=== PATIENT | male | born 1975 | race Caucasian/White ===

== ENCOUNTER 2016-05-30 09:42 | Outpatient (CLI) | payer OTHER ==
[~2016-05-30] VITALS: Ht 182.9 cm; Wt 96.6 kg
[~2016-05-30 09:42] MED LIST: BUPIVACAINE 0.25% 30 ML (SENSORCAINE) VIAL ONE
[2016-05-30] MEDS ORDERED: TRIAMCINOLONE ACET (KENALOG-40) 40 MG/ML 1 ML VIAL ONE (09:43)
--- OUTSIDE RECORDS SUMMARY | 2016-05-30 09:46 | XMS REPORT | Continuity of Care Document ---
Author Author [facility] Organization [facility] Address Unknown Phone Unavailable Care Team Providers Care Clinical Research Assistant Name Role Phone Cody Travis PCP [phone] Source Comments Some departments are not documenting in the electronic medical record. If you do not see the information that you expected, contact Release of Information in the Health Information Management department at [phone] for further assistance in locating additional records.[facility] Active Allergies and Adverse Reactions Allergen Noted Date Severity Reactions Comments Codeine 11/19/2014 Low UNKNOWN Current Medications Prescription Sig. Disp. Refills Start End Date Status Date oxyCODONE-acetaminophen Take 1 Tab by mouth every 12 Tab 0 11/21/19 Active (PERCOCET; ENDOCET; 4 hours as needed 15 ROXICET) 5-325 mg tablet Active Problems Not on file Social History Tobacco Use Types Packs/Day Years Used Date Never Assessed Last Filed Vital Signs Vital Sign Reading Time Taken Blood Pressure 128/95 11/20/2014 3:00 AM CDT Pulse 100 11/19/2014 9:41 PM CDT Temperature 37.4 C (99.3 F) 11/19/2014 9:41 PM CDT Respiratory Rate - - Height - - Weight 100.2 kg (220 lb 14.4 oz) 11/19/2014 9:41 PM CDT Body Mass Index - - Oxygen Saturation 94% 11/20/2014 3:00 AM CDT Plan of Care Health Maintenance Due Date Last Done Comments Physical (Comprehensive) 02/26/1984 Exam Pertussis Vaccine 02/26/1988 Tetanus Vaccine 1994 Influenza Vaccine 01/16/2015 Results from Last 3 Months Not on file
[2016-05-30 09:59] VITALS: BP 125/81
[2016-05-30 10:42] VITALS: BP 128/85
--- NOTE | 2016-05-30 11:36 | Pain Medicine-Procedure ---
Procedure Pre-Op/Post-Op Diagnosis Diagnosis: Disc disorder with radiculopathy, lumbar Indications for Operation Low back pain Attending Surgeon Norma Procedure Date of Service: May 30, 2016 Procedure: Lumbar Epidural Steroid Injection at the L4-L5 level under Fluoroscopic Guidance Procedure: Patient was identified in the holding area. After risks, benefits, and alternatives were discussed with the patient, informed consent was obtained. Patient was brought to the fluoroscopy suite and placed prone on the procedure room table. A time out was performed. Vital signs were monitored throughout the procedure. The patients low back was prepped and draped in the usual sterile fashion. The patients skin was anesthetized using 2% Lidocaine. A Tuohy needle was inserted and advanced to the L4-L5 epidural space under fluoroscopic guidance using the loss of resistance technique and intermittent projection of fluoroscopy. There was no paresthesia with needle placement. The needle position was confirmed in both the AP and lateral view. After negative aspiration 2ml of contrast was injected under live fluoroscopy which showed good spread of the contrast in the epidural space at the appropriate level, there was no intravascular or subarachnoid spread. Again, after negative aspiration for heme or CSF, 2 ml of 0.25% Bupivicaine, 2ml of preservative free normal saline, and 80mg of Kenalog was injected. The needle was removed and a sterile bandage was placed and the patient was transferred to the recovery area in stable condition. After a brief period of observation, patient was discharged to home with no new neurological deficits and no apparent complications. Complications None SUKHDEEP ELLIS MD May 30, 2016 11:36 am
== END 2016-05-30 10:45 ==
LOC: CARD 09:42
PROVIDERS: ATTEND Pain Medicine Pain Medicine
DX: M51.16 Intervertebral disc disorders with radiculopathy, lumbar region (principal); M47.816 Spondylosis without myelopathy or radiculopathy, lumbar region; Z79.899 Other long term (current) drug therapy
CPT/HCPCS: 62323

== ENCOUNTER 2016-07-04 09:21 | Outpatient (CLI) | payer OTHER ==
[~2016-07-04] VITALS: Ht 182.9 cm; Wt 96.6 kg
--- OUTSIDE RECORDS SUMMARY | 2016-07-04 09:24 | XMS REPORT | Continuity of Care Document ---
Author Author [facility] Organization [facility] Address Unknown Phone Unavailable Care Team Providers Care Cigar Tobacco Processing Supervisor Name Role Phone Cody Travis PCP [phone] Source Comments Some departments are not documenting in the electronic medical record. If you do not see the information that you expected, contact Release of Information in the Health Information Management department at [phone] for further assistance in locating additional records.[facility] Active Allergies and Adverse Reactions Allergen Noted [...]
[2016-07-04] MEDS ORDERED: LIDOCAINE 1% INJ 20 ML (XYLOCAINE) VIAL ONE (09:28)
[2016-07-04] MEDS ORDERED: BUPIVACAINE 0.25% 30 ML (SENSORCAINE) VIAL ONE (09:28)
[2016-07-04] MEDS ORDERED: TRIAMCINOLONE ACET (KENALOG-40) 40 MG/ML 1 ML VIAL ONE (09:28)
[2016-07-04 09:31] VITALS: BP 138/87
[2016-07-04 10:00] VITALS: BP 155/94
--- NOTE | 2016-07-04 14:16 | Pain Medicine-Procedure ---
Procedure Pre-Op/Post-Op Diagnosis Diagnosis: disc disorder with radiculopathy, lumbar Indications for Operation Low back pain Attending Surgeon Norma Procedure Date of Service: Jul 04, 2016 Procedure: Lumbar Epidural Steroid Injection at the L4-L5 level under Fluoroscopic Guidance Procedure: Patient was identified in the holding area. After risks, benefits, and alternatives were discussed with the patient, informed consent was obtained. Patient was brought to the fluoroscopy suite and placed prone on the procedure room table. A time out was performed. Vital signs were monitored throughout the procedure. The patients low back was prepped and draped in the usual sterile fashion. The patients skin was anesthetized using 2% Lidocaine. A Tuohy needle was inserted and advanced to the L4-L5 epidural space under fluoroscopic guidance using the loss of resistance technique and intermittent projection of fluoroscopy. There was no paresthesia with needle placement. The needle position was confirmed in both the AP and lateral view. After negative aspiration 2ml of contrast was injected under live fluoroscopy which showed good spread of the contrast in the epidural space at the appropriate level, there was no intravascular or subarachnoid spread. Again, after negative aspiration for heme or CSF, 2 ml of 0.25% Bupivicaine, 2ml of preservative free normal saline, and 80mg of Kenalog was injected. The needle was removed and a sterile bandage was placed and the patient was transferred to the recovery area in stable condition. After a brief period of observation, patient was discharged to home with no new neurological deficits and no apparent complications. Complications None SUKHDEEP ELLIS MD Jul 04, 2016 2:16 pm
== END 2016-07-04 10:02 | disposition home or self-care (01) ==
LOC: CARD 09:21
PROVIDERS: ATTEND Pain Medicine Pain Medicine
DX: M51.16 Intervertebral disc disorders with radiculopathy, lumbar region (principal); M47.816 Spondylosis without myelopathy or radiculopathy, lumbar region; Z79.899 Other long term (current) drug therapy
CPT/HCPCS: 62323

== ENCOUNTER 2018-08-06 19:35 | Observation (INO) | payer MEDICAID, OTHER | END 2018-08-07 15:33 | disposition home or self-care (01) | LOC: ER FS 19:35 → ICU 08-07 00:30 ==

== ENCOUNTER 2020-08-19 05:58 | Emergency (ER) | payer MEDICAID ==
[~2020-08-19 05:58] MED LIST changes: +ACHD5005 PO; -BUPIVACAINE 0.25% 30 ML (SENSORCAINE) VIAL ONE
[2020-08-19 06:03] VITALS: BP 143/93
[2020-08-19] MEDS ORDERED: ONDANSETRON 4 MG (ZOFRAN) ORAL DISSOLVE TAB PO STA (06:17)
--- NOTE | 2020-08-19 06:22 | ED Abdominal Pain ---
General Chief Complaint: Abdominal/GI Problems Stated Complaint: UPPER ABDOMINAL PAIN Nursing Triage Note: Pt in per POV with Upper abdominal pain since 299, reports vomited X2, also took OTC Ibuprofen Sepsis Screen: No Definite Risk History of Present Illness Date Seen by Provider: Aug 19, 2020 Time Seen by Provider: 06:10 Initial Comments 45-year-old male awoke at 3 AM with upper abdominal pain and nausea. He vomited twice. Presents with continued upper abdominal pain which is sharp in nature and gnawing. He did take some Pepcid without any relief. Denies history of peptic ulcer disease. Denies chest pain, palpitations or shortness of air. He denies cough or recent illness. He denies fever or chills. Did not eat anything unusual last night. Does drink a fair amount of caffeine including coffee, energy drinks and Dr. Flowers. Does not regularly take NSAIDs or aspirin. Allergies and Home Medications Allergies Coded Allergies: No Known Drug Allergies (Unverified , 08/06/18) Home Medications Hydrocodone Bit/Acetaminophen 1 Tab Tab, 1 TAB PO Q6H PRN for PAIN-MODERATE Prescribed by: ELOINA MORAN on 08/07/18 0851 Patient Home Medication List Home Medication List Reviewed: Yes Review of Systems Review of Systems Constitutional: No fever, No malaise, No weakness EENTM: No Symptoms Reported Respiratory: No Symptoms Reported Cardiovascular: Denies Chest Pain, Denies Edema, Denies Irregular Heart Rate, Denies Lightheadedness, Denies Palpitations, Denies Syncope Gastrointestinal: See HPI, Abdominal Pain, Nausea, Vomiting Genitourinary: No Symptoms Reported Musculoskeletal: No back pain, No joint pain Skin: No change in color, No lesions, No lumps Past Szmuuqd-Ukdfxc-Rcuccs Hx Past Med/Social Hx: Reviewed Nursing Past Med/Soc Hx Patient Social History Alcohol Use: Occasionally Uses Smoking Status: Never a Smoker Recent Infectious Disease Expo: No Recent Hopitalizations: No Seasonal Allergies Seasonal Allergies: No Past Medical History Surgeries: Yes Appendectomy, Orthopedic Respiratory: No Cardiac: No Neurological: No Reproductive Disorders: No Genitourinary: No Gastrointestinal: No Musculoskeletal: Yes Back Injury Endocrine: No HEENT: No Cancer: No Psychosocial: No ADD/ADHD Integumentary: No Blood Disorders: No Physical Exam Vital Signs Vital Signs - First Documented 08/19/20 06:03 Temp 36.5 Pulse 60 Resp 16 B/P (MAP) 143/93 (110) Pulse Ox 100 O2 Delivery Room Air Capillary Refill : Less Than 3 Seconds Height/Weight/BMI Height: 6'0.00" Weight: 215lbs. 0.0oz. 97.677724nu; 29.2 BMI Method:Stated General Appearance: WD/WN, no apparent distress Respiratory: chest non-tender, lungs clear, normal breath sounds, no respiratory distress, no accessory muscle use Cardiovascular: regular rate, rhythm, no edema, no gallop, no JVD Gastrointestinal: soft, no organomegaly, no pulsatile mass; No distended, No guarding, No rebound; tenderness (epigastric only); No hernia, No mass Back: normal inspection, no CVA tenderness Skin: normal color, warm/dry Progress/Results/Core Measures Results/Orders Vital Signs/I&O 08/19/20 06:03 Temp 36.5 Pulse 60 Resp 16 B/P (MAP) 143/93 (110) Pulse Ox 100 O2 Delivery Room Air Blood Pressure Mean: 110 Departure Impression Primary Impression: Abdominal pain Qualified Codes: R10.13 - Epigastric pain Disposition: 01 HOME, SELF-CARE Condition: Improved Departure-Patient Inst. Decision time for Depature: 06:21 Referrals: ALYSSA FOWLER MD (PCP/Family) Primary Care Physician Patient Instructions: Peptic Ulcers (DC) Add. Discharge Instructions: You MAY have an ulcer. It can't be confirmed without whats called an upper endoscopy (or scope to look in your stomach). We treat with medication for a few weeks to get it to heal. If you are not improving in a couple weeks you should see Dr Fowler to consider an upper endoscopy. Return to the ER if you are feeling worse. Do not take aspirin, motrin or naprosyn. Only take tylenol for pain. Cut down on unnecessary caffeine drinks All discharge instructions reviewed with patient and/or family. Voiced understanding. Scripts Ondansetron (Ondansetron Odt) 4 Mg Tab.rapdis 4 MG PO TID for Nausea, #12 TAB Prov: DIAMOND GUSMAN DO 08/19/20 Sucralfate (Sucralfate) 1 Gm Tablet 1 GM PO ACHS, #28 TAB 1 Refill Chew tablet to a slurry and then swallow take 30 minutes before meals and at bedtime Prov: ROVENSTINE,DIAMOND L DO 08/19/20 Famotidine (Pepcid) 20 Mg Tablet 20 MG PO BID, #60 TAB Prov: DIAMOND GUSMAN DO 08/19/20 DIAMOND GUSMAN DO Aug 19, 2020 06:22
[2020-08-19] MEDS ORDERED: SUCR1TAB PO (06:24)
[2020-08-19] MEDS ORDERED: FAMO-119 PO (06:24)
[2020-08-19] MEDS ORDERED: ONDA4TAB11 PO (06:24)
[2020-08-19] MEDS ORDERED: ONDANSETRON 4 MG (ZOFRAN) ORAL DISSOLVE TAB ONE (06:27)
[2020-08-19] MEDS ORDERED: FAMOTIDINE 20 MG (PEPCID) TABLET ONE (06:27)
[2020-08-19] MEDS ORDERED: LIDOCAINE 2% VISCOUS 15 ML UDC ONE (06:27)
[2020-08-19] MEDS ORDERED: ANTACID SUSP 30 ML UDC (MYLANTA) ONE (06:27)
[2020-08-19] MEDS ORDERED: FAMOTIDINE 20 MG (PEPCID) TABLET PO ONE (06:30)
[2020-08-19] MEDS ORDERED: LIDOCAINE 2% VISCOUS 15 ML UDC PO ONE (06:30)
[2020-08-19] MEDS ORDERED: ANTACID SUSP 30 ML UDC (MYLANTA) PO ONE (06:30)
== END 2020-08-19 06:46 | disposition home or self-care (01) ==
LOC: EDUNIT# 05:58 → ER FS 06:01
DX: R10.13 Epigastric pain (principal)
CPT/HCPCS: 99283

== ENCOUNTER 2021-02-19 11:06 | Emergency (ER) | payer MEDICAID ==
[~2021-02-19] VITALS: Ht 182.9 cm; Wt 100.0 kg
[~2021-02-19 11:06] MED LIST changes: +FAMO-119 PO; +ONDA4TAB11 PO; +SUCR1TAB PO
[2021-02-19] MEDS ORDERED: KETOROLAC 60 MG/2 ML VIAL IM STA (11:17)
--- NOTE | 2021-02-19 11:21 | ED Lower Extremity ---
General Stated Complaint: RT FOOT CRUSH INJ Source: patient Exam Limitations: no limitations History of Present Illness Date Seen by Provider: Feb 19, 2021 Time Seen by Provider: 11:11 Initial Comments Here with right foot injury after a large iron bracket fell on his foot catching the second, third and fourth toes. States they are numb now and complains of pain of 3 out of 10. States it was much worse earlier. Does note blood on his sock. States he feels the bones crunching. Denies other injury or concern. Last tetanus 4 to 5 years ago. Onset: just prior to arrival (Approximately 30 minutes ago) Severity: moderate Pain/Injury Location: right 2nd toe, right 3rd toe, right 4th toe Method of Injury: direct blow Modifying Factors: Improves With Immobilization; Worse With Movement Allergies and Home Medications Allergies Coded Allergies: No Known Drug Allergies (Unverified , 08/06/18) Patient Home Medication List Home Medication List Reviewed: Yes Famotidine (Pepcid) 20 Mg Tablet, 20 MG PO BID Prescribed by: DIAMOND GUSMAN on 08/19/20623 Hydrocodone Bit/Acetaminophen (Lortab 5 Mg Tablet) 1 Tab Tab, 1 TAB PO Q6H PRN for PAIN-MODERATE Prescribed by: ELOINA MORAN on 08/07/18 0851 Ondansetron (Ondansetron Odt) 4 Mg Tab.rapdis, 4 MG PO TID Prescribed by: DIAMOND GUSMAN on 08/19/20623 Sucralfate (Sucralfate) 1 Gm Tablet, 1 GM PO ACHS Prescribed by: DIAMOND GUSMAN on 08/19/20623 Review of Systems Constitutional: see HPI; No chills, No fever Respiratory: no symptoms reported Cardiovascular: no symptoms reported Musculoskeletal: see HPI, joint pain, joint swelling, muscle pain Skin: change in color, lesions Psychiatric/Neurological: Numbness; Denies Weakness Past Xlwdwxc-Gvzixq-Seeptl Hx Patient Social History Tobacco Use?: No Alcohol Use?: Yes Alcohol type: Beer Alcohol Frequency: Rarely Seasonal Allergies Seasonal Allergies: No Past Medical History Surgeries: Yes Appendectomy, Orthopedic Respiratory: No Cardiac: No Neurological: No Reproductive Disorders: No Genitourinary: No Gastrointestinal: No Musculoskeletal: Yes Back Injury Endocrine: No HEENT: No Cancer: No Psychosocial: No ADD/ADHD Integumentary: No Blood Disorders: No Family Medical History Reviewed Nursing Family Hx No Pertinent Family Hx Physical Exam Vital Signs Vital Signs - First Documented 02/19/21 11:10 Temp 35.8 Pulse 107 Resp 20 B/P (MAP) 136/100 (112) Pulse Ox 98 O2 Delivery Room Air Capillary Refill : Height, Weight, BMI Height: 6'0.00" Weight: 215lbs. 0.0oz. 97.288546pd; 29.2 BMI Method:Stated General Appearance: WD/WN, no apparent distress Cardiovascular: regular rate, rhythm, no murmur Respiratory: lungs clear, normal breath sounds Feet: right foot pain, right foot swelling, right foot other (Right distal second, third and fourth toes with contusion and bleeding noted from base of nail on third toe. Third toe nailbed has pulled out of base. States all 3 toes are numb. Distal circulation intact with cap refill less than 3 seconds to all toes.) Skin: warm/dry, ecchymosis, other (Lesions as above) Progress/Results/Core Measures Results/Orders My Orders Orders - DAX ALDANA MD Ketorolac Injection (Toradol Injection) (02/19/21 11:17) Foot 3 View Right (02/19/21 11:17) Vital Signs/I&O 02/19/21 11:10 Temp 35.8 Pulse 107 Resp 20 B/P (MAP) 136/100 (112) Pulse Ox 98 O2 Delivery Room Air Progress Progress Note : Progress Note Seen and evaluated. Tetanus is up-to-date per the patient. X-ray of right foot for evaluation of toe injury ordered. Toradol 60 mg IM for pain. Wounds cleaned by nursing. Monitor patient. 1215: Wounds cleaned and dressed by me. I did use Vaseline gauze over antibiotic ointment and secured with gauze and and gauze roll. Does have nailbed at the base exposed on the second and third toes. I was able to reset those and secure that with dressing without sutures. Patient preferred the nonsuture approach and it seems reasonable given the injury currently. He was informed that he will lose both toenails likely and maybe the fourth toenail as well. Postop shoe given. Discharged home with return precautions. Patient verbalized understanding of instructions and agreement with plan. Diagnostic Imaging Diagonstic Imaging: Xray Plain Films/CT/US/NM/MRI: other Comments NAME: [facility] REC#: [id number] PT STATUS: REG ER : 1975 PHYSICIAN: DAX ALDANA MD ADMIT DATE: 02/19/21/ER FS Draft Date of Exam:02/19/21 FOOT 3 VIEW RIGHT HISTORY: Crush injury to the right 2nd toe COMPARISON: None TECHNIQUE: 3 views of the right foot FINDINGS: There is a markedly comminuted mildly displaced fracture about the tuft and neck of the right 2nd toe distal phalangeal tuft. There is mild dorsal angulation, an additional small chip fracture is at the distal phalangeal base. There also appears to be a nondisplaced fracture at the 3rd toe distal phalangeal tuft. There is soft tissue swelling about the right 2nd toe with soft tissue laceration. No radiopaque foreign body is seen. There are degenerative changes in the 1st MTP joint. Distal fibular fixation plate is noted. IMPRESSION: 1. Markedly comminuted, mildly displaced extra articular fracture of the right 2nd toe distal phalanx. 2. Nondisplaced fracture of the right 3rd toe distal phalanx. Dictated on workstation # [id number] Dict: 02/19/21 1149 Trans: 02/19/21 1158 CV [id number] Interpreted by: KELVIN BORGES MD Electronically signed by: Reviewed: Reviewed by Me Departure Impression Primary Impression: Fracture of third toe, right, closed Qualified Codes: S92.501A - Displaced unspecified fracture of right lesser toe(s), initial encounter for closed fracture Additional Impression: Fracture of second toe, right, closed Qualified Codes: S92.501A - Displaced unspecified fracture of right lesser toe(s), initial encounter for closed fracture Disposition: 01 HOME, SELF-CARE Condition: Improved Departure-Patient Inst. Decision time for Depature: 12:03 Referrals: ALYSSA FOWLER MD (PCP/Family) Primary Care Physician FANNY HARRIS Patient Instructions: Toe Fracture ED Add. Discharge Instructions: Keep dressings in place for the next 2 days. Return for dressing change on morning. After that you will change the dressing once or twice daily as needed if becomes soiled. It is very important today that you go home and elevate your foot to reduce swelling, bleeding and pain. Take medications as directed. You may follow-up with Mike Harris APRN for following the fracture. Return for worse pain, swelling, bleeding, red streaks up the leg or other concerns as needed. You may take ibuprofen 800 mg every 8 hours as needed for pain. You may also take Tylenol/acetaminophen 1000 mg every 6-8 hours as needed for pain. Scripts Cephalexin (Cephalexin) 500 Mg Tablet 500 MG PO QID, #20 TAB 0 Refills Prov: DAX ALDANA MD 02/19/21 DAX ALDANA MD Feb 19, 2021 11:21
--- NOTE | 2021-02-19 11:58 | Diagnostic Imaging Report ---
HISTORY: Crush injury to the right 2nd toe COMPARISON: None TECHNIQUE: 3 views of the right foot FINDINGS: There is a markedly comminuted mildly displaced fracture about the tuft and neck of the right 2nd toe distal phalangeal tuft. There is mild dorsal angulation, an additional small chip fracture is at the distal phalangeal base. There also appears to be a nondisplaced fracture at the 3rd toe distal phalangeal tuft. There is soft tissue swelling about the right 2nd toe with soft tissue laceration. No radiopaque foreign body is seen. There are degenerative changes in the 1st MTP joint. Distal fibular fixation plate is noted. IMPRESSION: 1. Markedly comminuted, mildly displaced extra articular fracture of the right 2nd toe distal phalanx. 2. Nondisplaced fracture of the right 3rd toe distal phalanx. Dictated by: Dictated on workstation # [id number]
[2021-02-19] MEDS ORDERED: CEPH500T PO (12:03)
[2021-02-19 12:23] VITALS: BP 148/98
== END 2021-02-19 12:23 | disposition home or self-care (01) ==
LOC: EDUNIT# 11:06 → ER FS 11:07
DX: S92.531A Displaced fracture of distal phalanx of right lesser toe(s), initial encounter for closed fracture (principal); S92.534A Nondisplaced fracture of distal phalanx of right lesser toe(s), initial encounter for closed fracture; W20.8XXA Other cause of strike by thrown, projected or falling object, initial encounter
CPT/HCPCS: 73630

== ENCOUNTER 2021-02-21 09:58 | Emergency (ER) | payer MEDICAID ==
[~2021-02-21 09:58] MED LIST changes: +CEPH500T PO
--- NOTE | 2021-02-21 10:29 | ED Suture Removal/Wound Check ---
Suture/Wound Re-check Suture Removal/Wound Recheck : Suture Removal/Wound Recheck: Dry/sterile dressing-appl Progress Pt has some oozing blood from where nail beds are lifted up from base. No incr eased redness or streaking up his foot/leg. No fever or chills. No purulent drainage from toes General Appearance: WD/WN, no apparent distress Neuro/Tendon: normal motor functions, normal tendon functions, sensory deficit (decreased sensation to toes) Skin Exam: warm/dry, ecchymosis (2nd and 3rd toes especially) Physical Exam Vital Signs Vital Signs - First Documented 02/21/21 10:25 Temp 36.8 Pulse 78 Resp 16 B/P (MAP) 156/72 Pulse Ox 99 O2 Delivery Room Air Capillary Refill : General Appearance: WD/WN, no apparent distress Departure Impression Primary Impression: Fracture of second toe, right, closed Qualified Codes: S92.501D - Displaced unspecified fracture of right lesser toe(s), subsequent encounter for fracture with routine healing Additional Impressions: Fracture of third toe, right, closed Qualified Codes: S92.501D - Displaced unspecified fracture of right lesser toe(s), subsequent encounter for fracture with routine healing Crushing injury of right foot, subsequent encounter Disposition: 01 HOME, SELF-CARE Condition: Stable Departure-Patient Inst. Decision time for Depature: 10:27 Referrals: ALYSSA FOWLER MD (PCP/Family) Primary Care Physician Patient Instructions: Toe Fracture ED Add. Discharge Instructions: may wash wounds with soap and water, but do not soak them or scrub them. Continue with dressing changes 2 times a day and as needed if bleeding saturates dressing. Use the walking shoe to help stabilize the toes and limit movement so the fractures can heal. This would be 4-6 weeks usually. Follow up with clinic to monitor healing of fractures and nerve contusion. All discharge instructions reviewed with patient and/or family. Voiced understanding. KATIA LUEVANO MD Feb 21, 2021 10:29
[2021-02-21 10:40] VITALS: BP 156/72
== END 2021-02-21 10:40 | disposition home or self-care (01) ==
LOC: EDUNIT# 09:58 → ER FS 09:59
DX: Z48.01 Encounter for change or removal of surgical wound dressing (principal)

== ENCOUNTER 2022-01-10 16:10 | Emergency (ER) | payer MEDICAID ==
[~2022-01-10] VITALS: Ht 182.9 cm; Wt 99.4 kg
[2022-01-10 16:19] VITALS: BP 130/95
--- NOTE | 2022-01-10 16:23 | ED Upper Extremity ---
General Chief Complaint: Upper Extremity Stated Complaint: L RING FINGER PAIN/NUMBNESS Source: patient Exam Limitations: no limitations History of Present Illness Date Seen by Provider: Jan 10, 2022 Time Seen by Provider: 16:11 Initial Comments 46-year-old ambidextrous male with no pertinent past medical history coming in due to left ring finger pain. A couple days ago he was working in a piece of plywood landed on his left ring finger on the end. Since then he has felt like something is floating in it whether it is a piece of wood or splinter of his bone moving around causing pain. The pain is intermittent when he is moving, better with rest, better with ibuprofen this morning. Otherwise denying any other acute complaints. Tetanus is up-to-date Allergies and Home Medications Allergies Coded Allergies: No Known Drug Allergies (Unverified , 08/06/18) Patient Home Medication List Home Medication List Reviewed: Yes Cephalexin (Cephalexin) 500 Mg Tablet, 500 MG PO QID Prescribed by: DAX ALDANA on 02/19/21 1203 Famotidine (Pepcid) 20 Mg Tablet, 20 MG PO BID Prescribed by: DIAMOND GUSMAN on 08/19/20 0624 Hydrocodone Bit/Acetaminophen (Lortab 5 Mg Tablet) 1 Tab Tab, 1 TAB PO Q6H PRN for PAIN-MODERATE Prescribed by: ELOINA MORAN on 08/07/18 0851 Ondansetron (Ondansetron Odt) 4 Mg Tab.rapdis, 4 MG PO TID Prescribed by: DIAMOND GUSMAN on 08/19/2024 Sucralfate (Sucralfate) 1 Gm Tablet, 1 GM PO ACHS Prescribed by: DIAMOND GUSMAN on 08/19/2024 Review of Systems Constitutional: No fever EENTM: no symptoms reported Respiratory: no symptoms reported Cardiovascular: no symptoms reported Gastrointestinal: no symptoms reported Genitourinary: no symptoms reported Musculoskeletal: see HPI Skin: no symptoms reported Psychiatric/Neurological: No Symptoms Reported All Other Systems Reviewed Negative Unless Noted: Yes Past Fasuuhc-Vhdnvh-Cidvjs Hx Patient Social History Tobacco Use?: No Substance use?: No Alcohol Use?: No Pt feels they are or have been: No Immunizations Up To Date First/Initial COVID19 Vaccinat: n/a Second COVID19 Vaccination Gus: n/a Third COVID19 Vaccination Date: n/a Seasonal Allergies Seasonal Allergies: No Past Medical History Surgeries: Yes Appendectomy, Orthopedic Respiratory: No Cardiac: No Neurological: No Reproductive Disorders: No Genitourinary: No Gastrointestinal: No Musculoskeletal: Yes Back Injury Endocrine: No HEENT: No Cancer: No Psychosocial: No ADD/ADHD Integumentary: No Blood Disorders: No Family Medical History No Pertinent Family Hx Physical Exam Vital Signs Vital Signs - First Documented 01/10/22 16:19 Temp 36.7 Pulse 91 Resp 16 B/P (MAP) 130/95 (107) Pulse Ox 98 Capillary Refill : Height, Weight, BMI Height: 6'0.00" Weight: 215lbs. 0.0oz. 97.439905nl; 29.00 BMI Method:Stated General Appearance: WD/WN, no apparent distress HEENT: PERRL/EOMI, normal ENT inspection, pharynx normal Neck: non-tender, full range of motion, supple, normal inspection Cardiovascular: regular rate, rhythm, no edema, no murmur Respiratory: chest non-tender, lungs clear, normal breath sounds, no respiratory distress, no accessory muscle use Gastrointestinal: normal bowel sounds, non tender, soft; No distended, No guarding, No rebound Back: normal inspection Hand: normal ROM, Left (Left ring finger with little bit of redness and tenderness to palpation on the distal aspect with a small excoriation on the palmar surface) Neurologic/Tendon: normal sensation, normal motor functions, normal tendon functions Neurologic/Psychiatric: no motor/sensory deficits, alert, normal mood/affect Skin: normal color, warm/dry Lymphatic: no adenopathy Progress/Results/Core Measures Results/Orders My Orders Orders - DAGMAR FUNES MD Acetaminophen Tablet (Tylenol Tablet) (01/10/22 16:30) Finger(S) (01/10/22 16:20) Medications Given in ED Current Medications Medications Dose Ordered Sig/Karma Route Start Time Stop Time Status Last Admin Dose Admin Acetaminophen 1,000 mg ONCE ONCE PO 01/10/22 16:30 01/10/22 16:31 DC 01/10/22 16:31 1,000 MG Vital Signs/I&O 01/10/22 16:19 Temp 36.7 Pulse 91 Resp 16 B/P (MAP) 130/95 (107) Pulse Ox 98 Progress Progress Note : Progress Note 46-year-old male with above history coming in due to left ring finger pain after smashing it a couple days ago. ABCs were intact and vitals were stable on presentation. Physical exam with a little bit of redness and an area of with a punctate wound with tenderness. X-ray with probable foreign body that is very small. My suspicion that it is a small splinter. Discussed with the patient that opening of his finger to try to get this be more harmful to him than good. We will start him on antibiotics and pain medicine and have him follow-up as an outpatient Diagnostic Imaging Diagonstic Imaging: Xray (finger) Comments [facility]. [place], [place] NAME: JACKIE ACOSTA [facility] REC#: [id number] PT STATUS: REG ER : 1975 PHYSICIAN: DAGMAR FUNES MD ADMIT DATE: 01/10/22/ER FS Draft Date of Exam:01/10/22 FINGER(S) INDICATION: Left fourth finger puncture wound. FINDINGS: Three views of the left fourth finger show no fracture or dislocation. There is a tiny radiopaque foreign object in the soft tissue pad of the finger measuring less than a millimeter. IMPRESSION: Suspected tiny foreign body in the pad of the fourth finger. No fracture is seen. Dictated on workstation # [id number] Dict: 01/10/22 1649 Trans: 01/10/22 1653 [id number] Interpreted by: DAX HUANG MD Electronically signed by: Departure Impression Primary Impression: Foreign body of finger Disposition: 01 HOME, SELF-CARE Condition: Stable Departure-Patient Inst. Decision time for Depature: 17:02 Referrals: ALYSSA FOWLER MD (PCP/Family) Primary Care Physician Patient Instructions: Foreign Body in Skin (DC) Add. Discharge Instructions: It looks like a small splinter in the skin that is too deep to really go for to try to get out without causing significant harm to your finger. We will start you on antibiotics in case it started to get infected. You will also be on an anti-inflammatory for the next few days. If you have any redness spreading up your hand rapidly, pus coming out, or new fever then I want you to be seen by doctor. If this is causing significant symptoms over the next couple weeks to months, then I recommend following up with a hand surgeon to see if anything could be done. Scripts Ketorolac Tromethamine (Ketorolac Tromethamine) 10 Mg Tablet 10 MG PO Q8H for 4 Days, #12 TAB Prov: DAGMAR FUNES MD 01/10/22 Cephalexin (Cephalexin) 500 Mg Tablet 500 MG PO QID for 7 Days, #28 TAB Prov: DAGMAR FUNES MD 01/10/22 Work/School Note: Work Release Form Date Seen in the Emergency Department: Jan 10, 2022 Return to Work: Jan 11, 2022 Restrictions: No Restrictions DAGMAR FUNES MD Jan 10, 2022 16:23
[2022-01-10] MEDS ORDERED: ACETAMINOPHEN 500 MG TAB (TYLENOL) PO ONE (16:30)
--- NOTE | 2022-01-10 16:53 | Diagnostic Imaging Report ---
INDICATION: Left fourth finger puncture wound. FINDINGS: Three views of the left fourth finger show no fracture or dislocation. There is a tiny radiopaque foreign object in the soft tissue pad of the finger measuring less than a millimeter. IMPRESSION: Suspected tiny foreign body in the pad of the fourth finger. No fracture is seen. Dictated by: Dictated on workstation # [id number]
[2022-01-10] MEDS ORDERED: KETO10TA PO (17:03)
[2022-01-10] MEDS ORDERED: CEPH500T PO (17:03)
== END 2022-01-10 17:01 | disposition home or self-care (01) ==
LOC: EDUNIT# 16:10 → ER FS 16:11
DX: S60.455A Superficial foreign body of left ring finger, initial encounter (principal); Z28.310 Unvaccinated for COVID-19; W45.8XXA Other foreign body or object entering through skin, initial encounter; Y92.59 Other trade areas as the place of occurrence of the external cause; Y99.0 Civilian activity done for income or pay
CPT/HCPCS: 73140

== ENCOUNTER 2022-07-28 15:26 | Emergency (ER) | payer MEDICAID ==
[~2022-07-28] VITALS: Ht 182.8 cm; Wt 99.5 kg
[~2022-07-28 15:26] MED LIST changes: +KETO10TA PO
[2022-07-28 15:31] VITALS: BP 150/95
--- NOTE | 2022-07-28 15:50 | ED Abdominal Pain ---
General Chief Complaint: Abdominal/GI Problems Stated Complaint: CHEST PAIN, NAUSEOUS, HIGH BP, DIZZY,BRAIN FOG, Source of Information: Patient Exam Limitations: No Limitations History of Present Illness Date Seen by Provider: Jul 28, 2022 Time Seen by Provider: 15:37 Initial Comments 47-year-old male presents to the emergency department today for right upper quadrant abdominal pain. It radiates into his right parascapular region as well. Symptoms started at 230 this morning. He ate Sonic for dinner. He denies any fevers or chills. He has nausea without vomiting. He states it is difficult to focus at work secondary to pain. He has had his appendix removed but does still have his gallbladder. No constipation, diarrhea. He does not drink alcohol. Pain is dull throbbing and has been constant since onset. All other systems reviewed and negative except documented per HPI. Voice recognition software was used to help create this chart Allergies and Home Medications Allergies Coded Allergies: No Known Drug Allergies (Unverified , 08/06/18) Patient Home Medication List Home Medication List Reviewed: Yes Cephalexin (Cephalexin) 500 Mg Tablet, 500 MG PO QID Prescribed by: DAX ALDANA on 02/19/21 1203 Cephalexin (Cephalexin) 500 Mg Tablet, 500 MG PO QID Prescribed by: DAGMAR FUNES on 01/10/22 1703 Famotidine (Pepcid) 20 Mg Tablet, 20 MG PO BID Prescribed by: DIAMOND GUSMAN on 08/19/20 0624 Hydrocodone Bit/Acetaminophen (Lortab 5 Mg Tablet) 1 Tab Tab, 1 TAB PO Q6H PRN for PAIN-MODERATE Prescribed by: ELOINA MORAN on 08/07/18 0851 Ketorolac Tromethamine (Ketorolac Tromethamine) 10 Mg Tablet, 10 MG PO Q8H Prescribed by: DAGMAR FUNES on 01/10/22 1703 Ondansetron (Ondansetron Odt) 4 Mg Tab.rapdis, 4 MG PO TID Prescribed by: DIAMOND GUSMAN on 08/19/2024 Sucralfate (Sucralfate) 1 Gm Tablet, 1 GM PO ACHS Prescribed by: DIAMOND GUSMAN on 08/19/2024 Review of Systems Review of Systems Constitutional: no symptoms reported Past Capwkki-Eqazkx-Razoht Hx Patient Social History Tobacco Use?: No Use of E-Cig and/or Vaping dev: No Substance use?: No Alcohol Use?: No Immunizations Up To Date First/Initial COVID19 Vaccinat: n/a Second COVID19 Vaccination Gus: n/a Third COVID19 Vaccination Date: n/a Seasonal Allergies Seasonal Allergies: No Past Medical History Surgeries: Yes Appendectomy, Orthopedic Respiratory: No Cardiac: No Neurological: No Reproductive Disorders: No Genitourinary: No Gastrointestinal: No Musculoskeletal: Yes Back Injury Endocrine: No HEENT: No Cancer: No Psychosocial: No ADD/ADHD Integumentary: No Blood Disorders: No Family Medical History Reviewed Nursing Family Hx No Pertinent Family Hx Physical Exam Vital Signs Vital Signs - First Documented 07/28/22 15:31 Temp 36.7 Pulse 86 Resp 14 B/P (MAP) 150/95 (113) Pulse Ox 100 O2 Delivery Room Air Capillary Refill : Height/Weight/BMI Height: 6'0.00" Weight: 215lbs. 0.0oz. 97.574010vt; 29.00 BMI Method:Stated General Appearance: WD/WN, no apparent distress HEENT: normal ENT inspection, pharynx normal Neck: non-tender, full range of motion, supple, normal inspection Respiratory: chest non-tender, lungs clear, normal breath sounds, no respiratory distress, no accessory muscle use Cardiovascular: regular rate, rhythm, no edema, no gallop, no JVD, no murmur Gastrointestinal: normal bowel sounds, soft, no organomegaly, tenderness (Right upper quadrant. Positive Hernandez's.) Extremities: non-tender, normal inspection, normal capillary refill Back: normal inspection, no vertebral tenderness Neurologic/Psychiatric: alert, normal mood/affect Skin: normal color, warm/dry Progress/Results/Core Measures Results/Orders Lab Results Laboratory Tests Test 07/28/22 15:38 Range/Units White Blood Count 11.2 H 4.3-11.0 10^3/uL Red Blood Count 4.99 4.30-5.52 10^6/uL Hemoglobin 15.6 13.3-17.7 g/dL Hematocrit 44 40-54 % Mean Corpuscular Volume 89 80-99 fL Mean Corpuscular Hemoglobin 31 25-34 pg Mean Corpuscular Hemoglobin Concent 35 32-36 g/dL Red Cell Distribution Width 12.2 10.0-14.5 % Platelet Count 348 130-400 10^3/uL Mean Platelet Volume 8.7 L 9.0-12.2 fL Immature Granulocyte % (Auto) 0 % Neutrophils (%) (Auto) 76 H 42-75 % Lymphocytes (%) (Auto) 16 12-44 % Monocytes (%) (Auto) 6 0-12 % Eosinophils (%) (Auto) 2 0-10 % Basophils (%) (Auto) 0 0-10 % Neutrophils # (Auto) 8.5 H 1.8-7.8 10^3/uL Lymphocytes # (Auto) 1.8 1.0-4.0 10^3/uL Monocytes # (Auto) 0.6 0.0-1.0 10^3/uL Eosinophils # (Auto) 0.2 0.0-0.3 10^3/uL Basophils # (Auto) 0.1 0.0-0.1 10^3/uL Immature Granulocyte # (Auto) 0.0 0.0-0.1 10^3/uL Sodium Level 134 L 135-145 MMOL/L Potassium Level 3.8 3.6-5.0 MMOL/L Chloride Level 99 98-107 MMOL/L Carbon Dioxide Level 25 21-32 MMOL/L Anion Gap 10 5-14 MMOL/L Blood Urea Nitrogen 16 7-18 MG/DL Creatinine 0.73 0.60-1.30 MG/DL Estimat Glomerular Filtration Rate 114 BUN/Creatinine Ratio 22 Glucose Level 111 H 70-105 MG/DL Calcium Level 9.9 8.5-10.1 MG/DL Corrected Calcium 8.5-10.1 MG/DL Total Bilirubin 0.2 0.1-1.0 MG/DL Aspartate Amino Transf (AST/SGOT) 39 H 5-34 U/L Alanine Aminotransferase (ALT/SGPT) 30 0-55 U/L Alkaline Phosphatase 57 40-136 U/L Total Protein 8.0 6.4-8.2 GM/DL Albumin 4.7 H 3.2-4.5 GM/DL Lipase 18 8-78 U/L My Orders Orders - GIOVANNI RAMIREZ DO Cbc With Automated Diff (07/28/22 15:46) Comprehensive Metabolic Panel (07/28/22 15:46) Lipase (07/28/22 15:46) Ketorolac Injection (Toradol Injection) (07/28/22 16:00) Ondansetron Injection (Zofran Injectio (07/28/22 16:00) Medications Given in ED Current Medications Medications Dose Ordered Sig/Karma Route Start Time Stop Time Status Last Admin Dose Admin Ketorolac Tromethamine 15 mg ONCE ONCE IVP 07/28/22 16:00 07/28/22 16:01 DC 07/28/22 16:02 15 MG Ondansetron HCl 8 mg ONCE ONCE IVP 07/28/22 16:00 07/28/22 16:01 DC 07/28/22 16:02 8 MG Vital Signs/I&O 07/28/22 15:31 Temp 36.7 Pulse 86 Resp 14 B/P (MAP) 150/95 (113) Pulse Ox 100 O2 Delivery Room Air Departure Communication (Admissions) Patient is hemodynamically stable. Pain is resolved with IV Toradol. Nausea has resolved with IV Zofran. His AST is slightly elevated otherwise his labs are unremarkable. Unfortunately do not have ultrasound available at this time but they will be here in the morning. I have ordered an ultrasound to be completed in the morning with results the [facility] clinic where he receives his primary care. He is advised to return to the emergency department for any severe pain is not responsive to pain medication, inability tolerate p.o. or other concerns. He will follow-up with his primary doctor for ultrasound results and any nonemergent needs. Impression Primary Impression: RUQ pain Disposition: 01 HOME, SELF-CARE Condition: Stable Departure-Patient Inst. Referrals: ALYSSA FOWLER MD (PCP/Family) Primary Care Physician Patient Instructions: Abdominal Pain, Adult ED Add. Discharge Instructions: I think your symptoms are likely coming from your gallbladder. Have the ultrasound completed in the morning as recommended. Take the pain medication as prescribed as needed. The ultrasound results will go to the [facility] clinic. Please call them to follow-up. In the meantime maintain a bland diet as recommended. Return to the emergency department for any severe pain is not responding to pain medications or is persistent. Follow-up with your primary doctor for any nonemergent needs. All discharge instructions reviewed with patient and/or family. Voiced understanding. Scripts Ketorolac Tromethamine (Ketorolac Tromethamine) 10 Mg Tablet 10 MG PO TID for Pain for 3 Days, #9 TAB Prov: GIOVANNI RAMIREZ DO 07/28/22 GIOVANNI RAMIREZ DO Jul 28, 2022 15:50
[2022-07-28 15:57] LABS: BASOPHILS # (AUTO) 0.1 10^3/uL (0.0-0.1); BASOPHILS % (AUTO) 0 % (0-10); EOSINOPHILS # (AUTO) 0.2 10^3/uL (0.0-0.3); EOSINOPHILS % (AUTO) 2 % (0-10); HEMATOCRIT 44 % (40-54); HEMOGLOBIN 15.6 g/dL (13.3-17.7); LYMPHOCYTES # (AUTO) 1.8 10^3/uL (1.0-4.0); LYMPHOCYTES % (AUTO) 16 % (12-44); MEAN CORPUSCULAR HEMOGLOBIN 31 pg (25-34); MEAN CORPUSCULAR HGB CONC 35 g/dL (32-36); MEAN CORPUSCULAR VOLUME 89 fL (80-99); MEAN PLATELET VOLUME 8.7 fL (9.0-12.2); MONOCYTES # (AUTO) 0.6 10^3/uL (0.0-1.0); MONOCYTES % (AUTO) 6 % (0-12); NEUTROPHILS # (AUTO) 8.5 10^3/uL (1.8-7.8); NEUTROPHILS % (AUTO) 76 % (42-75); PLATELET COUNT 348 10^3/uL (130-400); WHITE BLOOD COUNT 11.2 10^3/uL (4.3-11.0)
[2022-07-28] MEDS ORDERED: KETOROLAC 15 MG/ML VIAL IVP ONE (16:00)
[2022-07-28] MEDS ORDERED: ONDANSETRON 4 MG/2 ML (SDV) Z0FRAN IVP ONE (16:00)
[2022-07-28 16:17] LABS: BUN/CREATININE RATIO 22; CALCIUM 9.9 MG/DL (8.5-10.1); CARBON DIOXIDE 25 MMOL/L (21-32); CHLORIDE 99 MMOL/L (98-107); CREATININE SERUM 0.73 MG/DL (0.60-1.30); GFR ESTIMATED 114; GLUCOSE 111 MG/DL (70-105); POTASSIUM 3.8 MMOL/L (3.6-5.0); SODIUM 134 MMOL/L (135-145)
[2022-07-28 16:18] LABS: ALANINE AMINOTRANSFERASE 30 U/L (0-55); ALBUMIN 4.7 GM/DL (3.2-4.5); ALKALINE PHOSPHATASE 57 U/L (40-136); BILIRUBIN,TOTAL 0.2 MG/DL (0.1-1.0); LIPASE 18 U/L (8-78)
[2022-07-28] MEDS ORDERED: KETO10TA PO (16:47)
== END 2022-07-28 16:50 | disposition home or self-care (01) ==
LOC: EDUNIT# 15:26 → ER FS 15:29
DX: R10.11 Right upper quadrant pain (principal); R11.0 Nausea
CPT/HCPCS: 36415; 80053; 83690; 85025; 93005

== ENCOUNTER 2022-08-27 15:15 | Emergency (ER) | payer MEDICAID ==
[~2022-08-27] VITALS: Ht 182 cm; Wt 98.0 kg
[2022-08-27] MEDS ORDERED: morphine INJ 10 MG/ML 1ML (SYR OR VIAL) IVP STA (15:25)
--- NOTE | 2022-08-27 15:32 | ED Abdominal Pain ---
General Chief Complaint: Chest Pain Stated Complaint: CHEST PAIN Nursing Triage Note: RIGHT SIDED CHEST PAIN THAT RADIATES TO SIDE AND INTO ABD STARTING AT 0430. Source of Information: Patient Exam Limitations: No Limitations History of Present Illness Date Seen by Provider: Aug 27, 2022 Time Seen by Provider: 15:19 Initial Comments 47-year-old male presents emergency department today for right upper quadrant abdominal pain that radiates into his right parascapular region and up into his right chest. He was seen here about a month ago for the same actually by my self. He was cleared medically after cardiac and abdominal work-up and set up for an outpatient ultrasound. He states for the reason he was unable to get this. He denies any fevers or chills. He does have nausea. No changes in bowel or bladder habits. No cardiac history. When he takes a deep breath the pain seems to catch him from doing so when he does short of breath with this All other systems reviewed and negative except documented per HPI. Voice recognition software was used to help create this chart Allergies and Home Medications Allergies Coded Allergies: No Known Drug Allergies (Unverified , 08/06/18) Patient Home Medication List Home Medication List Reviewed: Yes Cephalexin (Cephalexin) 500 Mg Tablet, 500 MG PO QID Prescribed by: DAX ALDANA on 02/19/21 1203 Cephalexin (Cephalexin) 500 Mg Tablet, 500 MG PO QID Prescribed by: DAGMAR FUNES on 01/10/22 1703 Famotidine (Pepcid) 20 Mg Tablet, 20 MG PO BID Prescribed by: DIAMOND GUSMAN on 08/19/20 0624 Hydrocodone Bit/Acetaminophen (Lortab 5 Mg Tablet) 1 Tab Tab, 1 TAB PO Q6H PRN for PAIN-MODERATE Prescribed by: ELOINA MORAN on 08/07/18 0851 Ketorolac Tromethamine (Ketorolac Tromethamine) 10 Mg Tablet, 10 MG PO Q8H Prescribed by: DAGMAR FUNES on 01/10/22 1703 Ketorolac Tromethamine (Ketorolac Tromethamine) 10 Mg Tablet, 10 MG PO TID Prescribed by: GIOVANNI RAMIREZ MD on 07/28/22 1647 Ondansetron (Ondansetron Odt) 4 Mg Tab.rapdis, 4 MG PO TID Prescribed by: DIAMOND GUSMAN on 08/19/20623 Sucralfate (Sucralfate) 1 Gm Tablet, 1 GM PO ACHS Prescribed by: DIAMOND GUSMAN on 08/19/20623 Review of Systems Review of Systems Constitutional: see HPI Past Ixrzjqm-Dyrgil-Trdasj Hx Patient Social History Tobacco Use?: No Use of E-Cig and/or Vaping dev: No Substance use?: No Immunizations Up To Date First/Initial COVID19 Vaccinat: n/a Second COVID19 Vaccination Gus: n/a Third COVID19 Vaccination Date: n/a Seasonal Allergies Seasonal Allergies: No Past Medical History Surgeries: Yes Appendectomy, Orthopedic Respiratory: No Cardiac: No Neurological: No Reproductive Disorders: No Genitourinary: No Gastrointestinal: No Musculoskeletal: Yes Back Injury Endocrine: No HEENT: No Cancer: No Psychosocial: No ADD/ADHD Integumentary: No Blood Disorders: No Family Medical History Reviewed Nursing Family Hx No Pertinent Family Hx Physical Exam Vital Signs Vital Signs - First Documented 08/27/22 15:22 Temp 36.3 Pulse 98 Resp 16 B/P (MAP) 165/98 (120) Pulse Ox 98 O2 Delivery Room Air Capillary Refill : Less Than 3 Seconds Height/Weight/BMI Height: 6'0.00" Weight: 215lbs. 0.0oz. 97.819853ck; 29.00 BMI Method:Stated General Appearance: WD/WN, no apparent distress HEENT: normal ENT inspection, pharynx normal Neck: non-tender, supple Respiratory: chest non-tender, lungs clear, normal breath sounds, no respiratory distress, no accessory muscle use Cardiovascular: regular rate, rhythm, no murmur Gastrointestinal: normal bowel sounds, soft, no organomegaly, tenderness (Tenderness palpation right upper quadrant with voluntary guarding. No rebound tenderness. No mass organomegaly. No skin changes. Positive Hernandez sign.) Extremities: normal range of motion, non-tender, normal inspection, normal capillary refill Progress/Results/Core Measures Results/Orders Lab Results Laboratory Tests Test 08/27/22 15:31 Range/Units White Blood Count 12.0 H 4.3-11.0 10^3/uL Red Blood Count 5.01 4.30-5.52 10^6/uL Hemoglobin 15.5 13.3-17.7 g/dL Hematocrit 45 40-54 % Mean Corpuscular Volume 89 80-99 fL Mean Corpuscular Hemoglobin 31 25-34 pg Mean Corpuscular Hemoglobin Concent 35 32-36 g/dL Red Cell Distribution Width 11.9 10.0-14.5 % Platelet Count 427 H 130-400 10^3/uL Mean Platelet Volume 8.4 L 9.0-12.2 fL Immature Granulocyte % (Auto) 0 % Neutrophils (%) (Auto) 76 H 42-75 % Lymphocytes (%) (Auto) 16 12-44 % Monocytes (%) (Auto) 6 0-12 % Eosinophils (%) (Auto) 2 0-10 % Basophils (%) (Auto) 1 0-10 % Neutrophils # (Auto) 9.1 H 1.8-7.8 10^3/uL Lymphocytes # (Auto) 1.9 1.0-4.0 10^3/uL Monocytes # (Auto) 0.7 0.0-1.0 10^3/uL Eosinophils # (Auto) 0.2 0.0-0.3 10^3/uL Basophils # (Auto) 0.1 0.0-0.1 10^3/uL Immature Granulocyte # (Auto) 0.0 0.0-0.1 10^3/uL Sodium Level 137 135-145 MMOL/L Potassium Level 3.6 3.6-5.0 MMOL/L Chloride Level 102 98-107 MMOL/L Carbon Dioxide Level 24 21-32 MMOL/L Anion Gap 11 5-14 MMOL/L Blood Urea Nitrogen 15 7-18 MG/DL Creatinine 0.83 0.60-1.30 MG/DL Estimat Glomerular Filtration Rate 110 BUN/Creatinine Ratio 18 Glucose Level 110 H 70-105 MG/DL Calcium Level 9.5 8.5-10.1 MG/DL Corrected Calcium 9.2 8.5-10.1 MG/DL Total Bilirubin 0.3 0.1-1.0 MG/DL Aspartate Amino Transf (AST/SGOT) 37 H 5-34 U/L Alanine Aminotransferase (ALT/SGPT) 33 0-55 U/L Alkaline Phosphatase 70 40-136 U/L Troponin I < 0.028 <0.028 NG/ML Total Protein 7.9 6.4-8.2 GM/DL Albumin 4.4 3.2-4.5 GM/DL Lipase 22 8-78 U/L My Orders Orders - GIOVANNI RAMIREZ DO Ekg Tracing (08/27/22 15:21) Comprehensive Metabolic Panel (08/27/22 15:25) Lipase (08/27/22 15:25) Cbc With Automated Diff (08/27/22 15:25) Morphine Injection (Morphine Injection (08/27/22 15:25) Troponin I [place] (08/27/22 15:26) Chest 1 View, Ap/Pa Only (08/27/22 15:26) Ondansetron Injection (Zofran Injectio (08/27/22 15:45) Iv/Invasive Line Insertion .IV INSERT (08/27/22 15:32) Medications Given in ED Current Medications Medications Dose Ordered Sig/Karma Route Start Time Stop Time Status Last Admin Dose Admin Ondansetron HCl 4 mg ONCE ONCE IVP 08/27/22 15:45 08/27/22 15:46 DC 08/27/22 15:45 4 MG Vital Signs/I&O 08/27/22 15:22 Temp 36.3 Pulse 98 Resp 16 B/P (MAP) 165/98 (120) Pulse Ox 98 O2 Delivery Room Air Blood Pressure Mean: 120 Comment Sinus rhythm with a rate of 85 bpm. Normal intervals. Normal axis. No ST or T wave abnormalities. No ectopy. No STEMI. Departure Communication (Admissions) Patient is hemodynamically stable with a nonsurgical abdominal exam. Vital signs are normal. LFTs are normal outside of very mild elevation of his AST which was present last as well. Bilirubin is normal, as is his lipase. Cardiac work-up is negative with a nonischemic EKG, normal troponin. Remainder of his electrolytes, renal function is normal. Is not anemic. No leukocytosis. Discharged in stable condition with supportive care and ultrasound for the morning. Impression Primary Impression: RUQ pain Disposition: 01 HOME, SELF-CARE Condition: Stable Departure-Patient Inst. Referrals: NO,LOCAL PHYSICIAN (PCP/Family) Primary Care Physician Patient Instructions: Abdominal Pain, Adult ED Add. Discharge Instructions: I still believe your symptoms are from your gallbladder. Please come in the morning for your ultrasound. Increase your fluids at home and rest. Avoid greasy or fatty foods and maintain a bland diet. All discharge instructions reviewed with patient and/or family. Voiced understanding. Scripts Hydrocodone/Acetaminophen (Hydrocodone-Acetamin 5-325 mg) 5 Mg-325 Mg Tablet 1 TAB PO Q4H PRN for PAIN-MODERATE (5-7) for 3 Days, #12 TAB Prov: GIOVANNI RAMIREZ DO 08/27/22 GIOVANNI RAMIREZ DO Aug 27, 2022 15:32
[2022-08-27 15:34] LABS: BASOPHILS # (AUTO) 0.1 10^3/uL (0.0-0.1); BASOPHILS % (AUTO) 1 % (0-10); EOSINOPHILS # (AUTO) 0.2 10^3/uL (0.0-0.3); EOSINOPHILS % (AUTO) 2 % (0-10); HEMATOCRIT 45 % (40-54); HEMOGLOBIN 15.5 g/dL (13.3-17.7); LYMPHOCYTES # (AUTO) 1.9 10^3/uL (1.0-4.0); LYMPHOCYTES % (AUTO) 16 % (12-44); MEAN CORPUSCULAR HEMOGLOBIN 31 pg (25-34); MEAN CORPUSCULAR HGB CONC 35 g/dL (32-36); MEAN CORPUSCULAR VOLUME 89 fL (80-99); MEAN PLATELET VOLUME 8.4 fL (9.0-12.2); MONOCYTES # (AUTO) 0.7 10^3/uL (0.0-1.0); MONOCYTES % (AUTO) 6 % (0-12); NEUTROPHILS # (AUTO) 9.1 10^3/uL (1.8-7.8); NEUTROPHILS % (AUTO) 76 % (42-75); PLATELET COUNT 427 10^3/uL (130-400)
--- NOTE | 2022-08-27 15:44 | Diagnostic Imaging Report ---
INDICATION: Right-sided chest pain. COMPARISON: The lungs are clear. No failure, effusion, or pneumothorax. IMPRESSION: No acute-appearing abnormality. Dictated by: Dictated on workstation # [id number]
[2022-08-27] MEDS ORDERED: ONDANSETRON 4 MG/2 ML (SDV) Z0FRAN IVP ONE (15:45)
[2022-08-27 15:48] LABS: ALBUMIN 4.4 GM/DL (3.2-4.5); CHLORIDE 102 MMOL/L (98-107); POTASSIUM 3.6 MMOL/L (3.6-5.0); SODIUM 137 MMOL/L (135-145)
[2022-08-27 15:50] LABS: CALCIUM 9.5 MG/DL (8.5-10.1)
[2022-08-27 15:51] LABS: GLUCOSE 110 MG/DL (70-105); TOTAL PROTEIN 7.9 GM/DL (6.4-8.2)
[2022-08-27 15:52] LABS: CARBON DIOXIDE 24 MMOL/L (21-32)
[2022-08-27 15:53] LABS: BILIRUBIN,TOTAL 0.3 MG/DL (0.1-1.0)
[2022-08-27 15:54] LABS: ALKALINE PHOSPHATASE 70 U/L (40-136); CREATININE SERUM 0.83 MG/DL (0.60-1.30); GFR ESTIMATED 110
[2022-08-27 15:55] LABS: BUN/CREATININE RATIO 18
[2022-08-27 15:57] LABS: ALANINE AMINOTRANSFERASE 33 U/L (0-55)
[2022-08-27 15:58] LABS: LIPASE 22 U/L (8-78)
[2022-08-27] MEDS ORDERED: ACHD5005 PO (16:43)
[2022-08-27 16:58] VITALS: BP 126/101
== END 2022-08-27 16:58 | disposition home or self-care (01) ==
LOC: EDUNIT# 15:15 → ER 15:18
DX: R10.11 Right upper quadrant pain (principal); Z28.310 Unvaccinated for COVID-19
CPT/HCPCS: 36415; 71045; 80053; 83690; 84484; 85025; 93005